=== PATIENT | female | born 1985 | race Caucasian/White ===

== ENCOUNTER 2018-07-17 13:46 | Emergency (ER) | payer OTHER ==
[2018-07-17] MEDS: FAMOTIDINE 20 MG TAB PO (14:21)
[2018-07-17] MEDS: DIPHENHYDRAMINE 25 MG CAP PO (14:21)
[2018-07-17] MEDS: DEXAMETHASONE 10 MG/ML 1 ML INJ IM (14:22)
[2018-07-17] MEDS ORDERED: IBUPROFEN 600 MG TAB PO (17:00)
== END 2018-07-17 17:13 | disposition home or self-care (01) ==
LOC: E/R 13:46
DX: K13.79 Other lesions of oral mucosa (principal); Z91.018 Allergy to other foods
CPT/HCPCS: 96372; 99284-25